=== PATIENT | female | born 1975 | race Caucasian/White ===

== ENCOUNTER 2020-02-17 15:59 | Emergency (ER) | payer MEDICAID ==
[~2020-02-17] VITALS: Ht 165.1 cm; Wt 46.0 kg
--- NOTE | 2020-02-17 16:06 | NUR ---
PT REPORTS PAIN ON RIGHT FLANK AND RIGHT SIDE OF BODY, REPORTS PAIN ON ARM AND LEG HAS NOW SUBSIDED BUT CONTINUES TO HAVE RIGHT FLANK PAIN.
[2020-02-17] MEDS ORDERED: SODIUM CHLORIDE FLUSH 10ML SYR IVF ONE (17:00)
[2020-02-17] MEDS ORDERED: SODIUM CHLORIDE 0.9% 1,000ML IVBOLUS ONE (17:00)
[2020-02-17] MEDS ORDERED: KETOROLAC 30 MG/1 ML IVPush ONE (17:00)
[2020-02-17 17:01] LABS: MICROSCOPIC NOT IND
[2020-02-17] MEDS ORDERED: KETOROLAC 30 MG/1 ML ONE (17:03)
[2020-02-17 17:24] LABS: BASOPHILS # (AUTO) 0.03 x10^3/uL (0-0.1); BASOPHILS % (AUTO) 0 % (0-1); EOSINOPHILS # (AUTO) 0.13 x10^3/uL (0-0.4); EOSINOPHILS % (AUTO) 2 % (1-7); LYMPHOCYTES # (AUTO) 2.28 x10^3/uL (1-3.4); LYMPHOCYTES % (AUTO) 30 % (22-44); MD NO; MEAN CORPUSCULAR HEMOGLOBIN 28.5 pg (27.0-34.8); MEAN CORPUSCULAR HGB CONC 32.6 g/dL (32.4-35.8); MEAN PLATELET VOLUME 8.1 fL (7.4-10.4); MONOCYTES # (AUTO) 0.42 x10^3/uL (0.2-0.8); MONOCYTES % (AUTO) 6 % (2-9); NEUTROPHILS # (AUTO) 4.67 x10^3/uL (1.8-6.8); NEUTROPHILS % (AUTO) 62 % (42-75); PLATELET COUNT 328 x10^3/uL (130-400); RED BLOOD COUNT 4.25 x10^6/uL (3.82-5.3)
[2020-02-17 17:33] LABS: ALBUMIN 3.9 g/dL (3.4-5.0); ANION GAP 4 mmol/L (5-15); CALCIUM 8.8 mg/dL (8.5-10.1); CHLORIDE 111 mmol/L (98-107)
[2020-02-17 17:39] LABS: ALANINE AMINOTRANSFERASE 14 U/L (12-78); ALKALINE PHOSPHATASE 45 U/L (45-117); BILIRUBIN,TOTAL 0.4 mg/dL (0.2-1.0); CREATININE 0.64 mg/dL (0.55-1.02); TOTAL PROTEIN 6.9 g/dL (6.4-8.2)
--- NOTE | 2020-02-17 17:50 | NUR ---
TASK RN: WARM BLANKET PROVIDED.
[2020-02-17] MEDS ORDERED: ONDANSETRON 2MG/ML, 2ML ONE (18:16)
[2020-02-17] MEDS ORDERED: MORPHINE SULFATE 4 MG/ML, 1ML ONE (18:16)
--- NOTE | 2020-02-17 18:24 | NUR ---
MEDICATED PER MAR, VSS. IS AT BEDSIDE.
[2020-02-17] MEDS ORDERED: MORPHINE SULFATE 4 MG/ML, 1ML IVPush ONE (18:30)
[2020-02-17] MEDS ORDERED: ONDANSETRON 2MG/ML, 2ML IVPush ONE (18:30)
[2020-02-17 19:16] VITALS: BP 112/66
== END 2020-02-17 20:21 | disposition home or self-care (01) ==
LOC: ED 18:38
DX: R10.9 Unspecified abdominal pain (principal); R11.0 Nausea; M81.0 Age-related osteoporosis without current pathological fracture; Z90.49 Acquired absence of other specified parts of digestive tract
CPT/HCPCS: 36415; 74176; 80053; 81003; 83690; 84703; 85025; 96374; 96375; 99284; J1885; J2270; J2405; J7030